=== PATIENT | male | born 1975 | race Caucasian/White ===

== ENCOUNTER → 2025-04-30 08:47 | Outpatient (REF) | payer BC, SELFPAY | LOC: HWRAD 08:47 | PROVIDERS: ATTENDING PHYSICIAN Family Medicine | DX: K40.90 Unilateral inguinal hernia, without obstruction or gangrene, not specified as recurrent (principal) | CPT/HCPCS: 76882 ==

== ENCOUNTER 2025-05-19 06:04 | Day surgery (SDC) | payer BC, SELFPAY ==
[2025-05-19] VITALS (10 sets, daily range): BP systolic 96–114; BP diastolic 60–72; BMI 30.1
[2025-05-19] MEDS: NORMOSOL-R/PLASMALYTE-A 1000 IV (07:34)
[2025-05-19] MEDS: TYLENOL 1000 MG PO (07:37)
[2025-05-19 07:46] LABS: Hematocrit 41.4 % (39.0-52.0); Hemoglobin 14.3 g/dL (13.0-18.0); Mean Corp Hgb Conc. 34.5 g/dL (33.0-37.0); Mean Corpuscular Volume 91.8 fL (80.0-94.0); Platelet Count 264 10^3/uL (130-400); Red Cell Dist. Width 12.7 % (11.5-14.5)
[2025-05-19 08:19] LABS: Blood Urea Nitrogen 15 mg/dl (9-20); Calcium 9.5 mg/dl (8.4-10.2); Carbon Dioxide 26 mmol/L (22-30); Chloride 103 mmol/L (98-107); Estimated Creatinine Clearance 124 ml/min; Glucose 91 mg/dl (70-99); Potassium 4.2 mmol/L (3.5-5.1); Sodium 133 mmol/L (135-145); eGFR > 60.00
[2025-05-19] MEDS: DILAUDID 0.25 MG IV (10:54)
[2025-05-19] MEDS: ROXICODONE 5 MG PO (12:08)
== END 2025-05-19 12:54 | disposition home or self-care (01) ==
LOC: SDS 06:04
PROVIDERS: ATTENDING PHYSICIAN Surgery
DX: K40.20 Bilateral inguinal hernia, without obstruction or gangrene, not specified as recurrent (principal); E66.9 Obesity, unspecified
CPT/HCPCS: 49650; 80048; 85027; 93005; C1781